=== PATIENT | male | born 1975 | race Caucasian/White ===

== ENCOUNTER 2023-04-16 11:26 | Emergency (ER) | payer OTHER ==
--- NOTE | 2023-04-16 12:30 | RAD REPORT ---
EXAM DESCRIPTION: CTStone Protocol - 04/16/2023 12:18 pm CLINICAL HISTORY: L flank pain COMPARISON: No comparisons TECHNIQUE: CT of the abdomen and pelvis was performed without contrast. All CT scans are performed using dose optimization technique as appropriate and may include automated exposure control or mA/KV adjustment according to patient size. FINDINGS: Lower chest: No acute abnormality. Liver: No acute abnormality or suspicious lesions. Biliary: No biliary ductal dilatation. Stomach: No significant focal abnormality. Duodenum: No significant focal abnormality. Pancreas: No significant abnormality. Spleen: No significant abnormality. Adrenal: No suspicious lesions. Kidney/ureter: No hydronephrosis. No renal calculi. Bilateral ureteral fullness. No ureteral calculi. Retroperitoneum: No retroperitoneal adenopathy. Vascular: No aneurysm. Minimal calcified plaque in the abdominal aorta. Bowel: No significant focal abnormality. Normal appendix. Peritoneum: No ascites or free air. Small fat containing inguinal hernias. Bladder: Grossly unremarkable. Reproductive: No adnexal masses. Bones: No acute fracture. Other: n/a IMPRESSION: No acute intra-abdominal or pelvic finding.
[2023-04-16 12:54] LABS: Specific Gravity < 1.005 (1.005-1.030); Urine Bacteria None Seen /HPF (<20); Urine Bilirubin NEGATIVE (Negative); Urine Blood Negative (Negative); Urine Clarity Clear (Clear); Urine Color Colorless (Yellow); Urine Glucose NEGATIVE (Negative); Urine Protein NEGATIVE (Negative); Urine RBC <5 /HPF (None Seen); Urine Urobilinogen Normal (Normal); Urine pH 5.5 (5.0-7.0)
[2023-04-16 12:58] LABS: Absolute Lymphocytes (CBC) 0.9 K/uL (0.7-4.9); Hematocrit 47.1 % (39.6-49.0); Lymphocytes % 14.5 % (15.3-44.8); MCV 89.3 fL (80-100); MPV 6.9 fL (7.6-11.3); RBC Red Blood Cell Count 5.28 M/uL (4.33-5.43)
--- NOTE | 2023-04-16 12:58 | RAD REPORT ---
EXAM DESCRIPTION: RAD - Chest Single View - 04/16/2023 12:45 pm CLINICAL HISTORY: MALAISE COMPARISON: Chest Single View dated 02/07/2023 FINDINGS: Lines: None. Lungs: No evidence of edema or pneumonia. Pleural: No significant pleural effusions or pneumothorax. Cardiac: The heart size is within normal limits. Mediastinum: Within normal limits. Bones: No acute fractures. Other: None IMPRESSION: No acute cardiopulmonary disease.
[2023-04-16 13:06] LABS: Protime INR 1.13
[2023-04-16 13:59] LABS: Albumin 4.1 g/dL (3.4-5.0); Bilirubin Direct 0.2 mg/dL (0-0.2); Bilirubin Indirect, Calculated 0.5 mg/dL (0.2-0.8); Bilirubin Total 0.7 mg/dL (0.2-1.0); Magnesium 2.1 mg/dL (1.6-2.4); Potassium 4.1 mEq/L (3.5-5.1); Protein, Total 7.7 g/dL (6.4-8.2); Troponin High Sensitivity 5.9 pg/mL (<58.9)
--- NOTE | 2023-04-16 14:25 | ER ---
Nurse's Notes [facility] Name: aJy Neal Age: 47 yrs Sex: Male : 1975 Arrival Date: 04/16/2023 Time: 11:26 Bed 20 Private MD: Nico Blas Diagnosis: Other malaise and fatigue;Low back pain Presentation: 04/16 11:36 Chief complaint: Patient states: L sided mid back pain for 2 weeks int. Notices feeling ll1 weak, lethargic, and nausea off/on. States he came here about 3 weeks ago for chest pain and just has never felt normal since. Coronavirus screen: Client denies travel out of the [place] in the last 14 days. At this time, the client does not indicate any symptoms associated with coronavirus-19. Ebola Screen: Patient denies travel to an Ebola-affected area in the 21 days before illness onset. Initial Sepsis Screen: Does the patient meet any 2 criteria? No. Patient's initial sepsis screen is negative. Does the patient have a suspected source of infection? No. Patient's initial sepsis screen is negative. Risk Assessment: Do you want to hurt yourself or someone else? Patient reports no desire to harm self or others. Onset of symptoms was April 03, 2023. 11:36 Method Of Arrival: Ambulatory ll1 11:36 Acuity: KANE 2 ll1 Triage Assessment: 11:38 General: Appears uncomfortable, Behavior is calm, cooperative, appropriate for age. ll1 General: Reports fatigue for. Pain: Complains of pain in L back Pain currently is 5 out of 10 on a pain scale. Quality of pain is described as aching, Is intermittent. GI: Reports nausea. Musculoskeletal: Circulation, motion, and sensation intact. Capillary refill < 3 seconds, Reports pain in L mid/upper back. Historical: - Allergies: 11:30 No Known Allergies; eh3 - Immunization history:: Adult Immunizations up to date. - Social history:: Smoking status: Patient denies any tobacco usage or history of. Screenin:30 [facility] ED Fall Risk Assessment (Adult) Score/Fall Risk Level 0 - 2 = Low Risk. Abuse eh3 screen: Denies threats or abuse. Denies injuries from another. Nutritional screening: No deficits noted. Tuberculosis screening: No symptoms or risk factors identified. Assessment: 11:30 General: Appears in no apparent distress. uncomfortable, Behavior is cooperative, eh3 appropriate for age, anxious. Pain: Complains of pain in back and chest. Neuro: Level of Consciousness is awake, alert, obeys commands, Oriented to person, place, time, situation. Cardiovascular: Capillary refill < 3 seconds Patient's skin is warm and dry. Rhythm is sinus rhythm. Respiratory: Airway is patent Respiratory effort is even, unlabored, Respiratory pattern is regular, symmetrical. GI: Abdomen is round non-distended, Reports nausea. : No signs and/or symptoms were reported regarding the genitourinary system. EENT: No signs and/or symptoms were reported regarding the EENT system. Derm: Skin is pink, warm \T\ dry. Musculoskeletal: Circulation, motion, and sensation intact. 12:30 Reassessment: Patient appears in no apparent distress at this time. Patient and/or eh3 family updated on plan of care and expected duration. Pain level reassessed. Patient is alert, oriented x 3, equal unlabored respirations, skin warm/dry/pink. 13:30 Reassessment: Patient appears in no apparent distress at this time. Patient and/or eh3 family updated on plan of care and expected duration. Pain level reassessed. Patient is alert, oriented x 3, equal unlabored respirations, skin warm/dry/pink. Vital Signs: 11:36 BP 165 / 116; Pulse 89; Resp 17; Temp 98.4; Pulse Ox 99% ; Weight 90.72 kg; Height 5 ll1 ft. 9 in. ; Pain 5/10; 12:30 BP 140 / 89; Pulse 84; Resp 16; Pulse Ox 95% on R/A; eh3 13:30 BP 144 / 85; Pulse 78; Resp 16; Pulse Ox 100% ; eh3 11:36 Body Mass Index 29.53 (90.72 kg, 175.26 cm) ll1 11:36 Pain Scale: Adult ll1 NIH Stroke Scale Scores: 11:30 NIHSS Score: 0 [facility] ED Course: 11:28 Patient arrived in ED. rg4 11:28 Nico Blas MD is Private Physician. 4 11:30 [facility] 7 11:30 Magdiel Tavares MD is Attending Physician. 7 11:30 Alyce Charlton, RN is Primary Nurse. 3 11:30 Patient has correct armband on for positive identification. Bed in low position. Call 3 light in reach. Side rails up X2. Adult w/ patient. Client placed on continuous cardiac and pulse oximetry monitoring. NIBP monitoring applied. Door closed. Noise minimized. Lights dimmed. Warm blanket given. 11:30 Inserted saline lock: 20 gauge in left antecubital area, using aseptic technique. Blood eh3 collected. 11:36 Arm band placed on Patient placed in an exam room, on a stretcher. ll1 11:38 Triage completed. ll1 12:19 CT Stone Protocol In Process Unspecified. EDMS 12:47 XRAY Chest (1 view) In Process Unspecified. EDMS 14:23 Nico Blas MD is Referral Physician. [facility] 14:28 No provider procedures requiring assistance completed. IV discontinued, intact, eh3 bleeding controlled, No redness/swelling at site. Pressure dressing applied. Administered Medications: No medications were administered Medication: 14:28 VIS not applicable for this client. 3 Outcome: 14:24 Discharge ordered by . [facility] 14:28 Discharged to home ambulatory, with significant other. eh3 14:28 Condition: stable 14:28 Discharge instructions given to patient, Instructed on discharge instructions, follow up and referral plans. Demonstrated understanding of instructions, follow-up care. 14:35 Patient left the ED. eh3 NIH Stroke Scale - NIH Stroke Score Date: 04/16/2023 Time: 11:30 Total Score = 0 10. Dysarthria (speech clarity - read or repeat words) - 0(Normal) 11. Extinction and Inattention (visual/tactile/auditory/spatial/personal) - 0(No abnormality) 1a. Level of Consciousness (LOC) - 0(Alert) 1b. Level of Consciousness (LOC) (Month \T\ Age) - 0(Both) 1c. LOC Commands (Open \T\ Closes Eyes/Mop Maker) - 0(Both) 2. Best Gaze (Lateral Gaze Paresis) - 0(Normal) 3. Visual Field Loss - 0(No visual loss) 4. Facial Palsy - 0(Normal) 5a. Left Arm: Motor (10-second hold) - 0(No drift) 5b. Right Arm: Motor (10-second hold) - 0(No drift) 6a. Left Leg: Motor (5-second hold - always test supine) - 0(No drift) 6b. Right Leg: Motor (5-second hold - always test supine) - 0(No drift) 7. Limb Ataxia (finger/nose \T\ heel/siddiqui - test with eyes open) - 0(Absent) 8. Sensory Loss (pinprick arms/legs/face) - 0(Normal) 9. Best Language: Aphasia (description/naming/reading) - 0(No aphasia) Initials: [facility] Signatures: Dispatcher [employer] Jillian Kramer 4 Abdi Milligan RN RN 1 Alyce Charlton, RN RN 3 Melani Coello FNP AUTOMATIC LATHE TENDER [facility] Corrections: (The following items were deleted from the chart) 14:26 11:55 Alyec Charlton, RN is Primary Nurse. 3 [facility]
--- NOTE | 2023-04-16 14:25 | EDPHYS ---
Physician Documentation [facility] Name: Jay Neal Age: 47 yrs Sex: Male : 1975 Arrival Date: 04/16/2023 Time: 11:26 Bed 20 Private MD: Nico Blas ED Physician Magdiel Tavares HPI: 04/16 11:30 This 47 yrs old Male presents to ER via Ambulatory with complaints of Back Pain, jh7 Shoulder Pain. 11:30 The patient presents with pain that is acute, with no known mechanism of injury. The jh7 symptoms are located in the low back, left low back and left mid back. Associated signs and symptoms: Pertinent positives: Malaise and fatigue, Pertinent negatives: abdominal pain, chest pain, dysuria, headache, numbness, tingling, vomiting. 47-year-old male presents with left back pain/flank pain for the past 2 weeks. Reports that he was seen here recently for palpitations and has not felt good since. Reports that he works out frequently but has felt more fatigued than usual. Denies fever, chest pain, or shortness of breath. Also reports that he is concerned that he could have a kidney stone due to the flank pain. Denies urinary symptoms.. Historical: - Allergies: 11:30 No Known Allergies; eh3 - Immunization history:: Adult Immunizations up to date. - Social history:: Smoking status: Patient denies any tobacco usage or history of. ROS: 11:30 Constitutional: Negative for fever, chills, and weight loss, Eyes: Negative for injury, jh7 pain, redness, and discharge, Neck: Negative for injury, pain, and swelling, Cardiovascular: Negative for chest pain, palpitations, and edema, Respiratory: Negative for shortness of breath, cough, wheezing, and pleuritic chest pain, Abdomen/GI: Negative for abdominal pain, nausea, vomiting, diarrhea, and constipation, MS/Extremity: Negative for injury and deformity, Skin: Negative for injury, rash, and discoloration, Neuro: Negative for headache, weakness, numbness, tingling, and seizure. 11:30 Back: Positive for flank pain, on the left. 11:30 : Positive for flank pain, Negative for urinary symptoms, penile pain, testicular pain 11:30 All other systems are negative. Exam: 11:30 Constitutional: This is a well developed, well nourished patient who is awake, alert, jh7 and in no acute distress. Head/Face: Normocephalic, atraumatic. Eyes: Pupils equal round and reactive to light, extra-ocular motions intact. Lids and lashes normal. Conjunctiva and sclera are non-icteric and not injected. Cornea within normal limits. Periorbital areas with no swelling, redness, or edema. Neck: Trachea midline, no thyromegaly or masses palpated, and no cervical lymphadenopathy. Supple, full range of motion without nuchal rigidity, or vertebral point tenderness. No Meningismus. Cardiovascular: Regular rate and rhythm with a normal S1 and S2. No gallops, murmurs, or rubs. Normal PMI, no JVD. No pulse deficits. Respiratory: Lungs have equal breath sounds bilaterally, clear to auscultation and percussion. No rales, rhonchi or wheezes noted. No increased work of breathing, no retractions or nasal flaring. Abdomen/GI: Soft, non-tender, with normal bowel sounds. No distension or tympany. No guarding or rebound. No evidence of tenderness throughout. Skin: Warm, dry with normal turgor. Normal color with no rashes, no lesions, and no evidence of cellulitis. MS/ Extremity: Pulses equal, no cyanosis. Neurovascular intact. Full, normal range of motion. Neuro: Awake and alert, GCS 15, oriented to person, place, time, and situation. Motor strength 5/5 in all extremities. Sensory grossly intact. Normal gait. 11:30 : CVA tenderness, on the left. 11:30 Neuro: Orientation: is normal, Mentation: is normal, Memory: is normal, Cranial nerves: jh7 grossly normal, Cerebellar function: is grossly normal, Motor: is normal, Sensation: is normal. Vital Signs: 11:36 BP 165 / 116; Pulse 89; Resp 17; Temp 98.4; Pulse Ox 99% ; Weight 90.72 kg; Height 5 ll1 ft. 9 in. ; Pain 5/10; 12:30 BP 140 / 89; Pulse 84; Resp 16; Pulse Ox 95% on R/A; eh3 13:30 BP 144 / 85; Pulse 78; Resp 16; Pulse Ox 100% ; eh3 11:36 Body Mass Index 29.53 (90.72 kg, 175.26 cm) ll1 11:36 Pain Scale: Adult ll1 NIH Stroke Scale Scores: 11:30 NIHSS Score: 0 [facility] MDM: 11:30 Patient medically screened. [facility] 14:15 Differential diagnosis: Fatigue sprain, Ureterolithiasis Rhabdomyolysis. Data reviewed: [facility] vital signs, nurses notes, lab test result(s), EKG, radiologic studies, CT scan, plain films. Historians other than the Patient: Spouse/Significant Other: . Counseling: I had a detailed discussion with the patient and/or guardian regarding: the historical points, exam findings, and any diagnostic results supporting the discharge/admit diagnosis, the need for outpatient follow up, for definitive care, to return to the emergency department if symptoms worsen or persist or if there are any questions or concerns that arise at home. ED course: The patient reported history of anxiety and whitecoat syndrome. Reports that since he was seen in the ER last time he has been very anxious and was concerned about his kidney values since his GFR was 58 at his last PCP visit. Informed him that his GFR had increased to 65 and that his creatinine was borderline high. Reviewed all labs and imaging with the patient. Advised him to follow-up with his PCP for further lab work (thyroid panel, iron panel, etc). If he develops any new concerning symptoms, he may return to the ER for further eval.. 04/16 11:43 Order name: Basic Metabolic Panel; Complete Time: 14:04 [facility] 04/16 11:43 Order name: CBC with Diff; Complete Time: 13: [facility] 04/16 11:43 Order name: LFT's; Complete Time: 14:04 [facility] 04/16 11:43 Order name: Magnesium; Complete Time: 14:04 [facility] 04/16 11:43 Order name: NT PRO-BNP; Complete Time: 14:04 [facility] 04/16 11:43 Order name: PT-INR; Complete Time: 14:04 [facility] 04/16 11:43 Order name: Troponin HS; Complete Time: 14:04 [facility] 04/16 11:43 Order name: CK; Complete Time: 14:04 [facility] 04/16 11:43 Order name: Urinalysis W/Microscopic; Complete Time: 13:04 [facility] 04/16 11:43 Order name: XRAY Chest (1 view); Complete Time: 13:04 [facility] 04/16 11:43 Order name: CT Stone Protocol; Complete Time: 12:42 [facility] 04/16 11:43 Order name: EKG; Complete Time: 11:44 [facility] 04/16 11:43 Order name: Cardiac monitoring; Complete Time: 12:56 [facility] 04/16 11:43 Order name: EKG - Nurse/Tech; Complete Time: 12:56 [facility] 04/16 11:43 Order name: IV Saline Lock; Complete Time: 12:56 [facility] 04/16 11:43 Order name: Labs collected and sent; Complete Time: 12:56 [facility] 04/16 11:43 Order name: O2 Per Protocol; Complete Time: 12:56 [facility] 04/16 11:43 Order name: O2 Sat Monitoring; Complete Time: 12:56 [facility] 04/16 14:05 Order name: Recheck B/P; Complete Time: 14:10 [facility] EC:46 Rate is 82 beats/min. Rhythm is regular. QRS [place] is Normal. OK interval is normal at [facility] 154 msec. QRS interval is normal at 82 msec. QT interval is normal at 360 msec. No Q waves. T waves are Peaked in leads V2, V3. No ST changes noted. Clinical impression: NSR w/ Non-specific ST/T Changes. Administered Medications: No medications were administered Disposition Summary: 04/16/23 14:24 Discharge Ordered Location: Home [facility] Problem: new [facility] Symptoms: are unchanged [facility] Condition: Stable [facility] Diagnosis - Other malaise and fatigue [facility] - Low back pain [facility] Followup: [facility] - With: Nico Blas MD - When: 2 - 3 days - Reason: Recheck today's complaints Discharge Instructions: - Discharge Summary Sheet [facility] - Acute Back Pain, Adult [facility] - Musculoskeletal Pain [facility] - Fatigue [facility] Forms: - Medication Reconciliation Form [facility] - Thank You Letter [facility] NIH Stroke Scale - NIH Stroke Score Date: 04/16/2023 Time: 11:30 Total Score = 0 10. Dysarthria (speech clarity - read or repeat words) - 0(Normal) 11. Extinction and Inattention (visual/tactile/auditory/spatial/personal) - 0(No abnormality) 1a. Level of Consciousness (LOC) - 0(Alert) 1b. Level of Consciousness (LOC) (Month \T\ Age) - 0(Both) 1c. LOC Commands (Open \T\ Closes Eyes/Cartography Technician) - 0(Both) 2. Best Gaze (Lateral Gaze Paresis) - 0(Normal) 3. Visual Field Loss - 0(No visual loss) 4. Facial Palsy - 0(Normal) 5a. Left Arm: Motor (10-second hold) - 0(No drift) 5b. Right Arm: Motor (10-second hold) - 0(No drift) 6a. Left Leg: Motor (5-second hold - always test supine) - 0(No drift) 6b. Right Leg: Motor (5-second hold - always test supine) - 0(No drift) 7. Limb Ataxia (finger/nose \T\ heel/siddiqui - test with eyes open) - 0(Absent) 8. Sensory Loss (pinprick arms/legs/face) - 0(Normal) 9. Best Language: Aphasia (description/naming/reading) - 0(No aphasia) Initials: [facility] Signatures: Dispatcher [employer] Abdi Olivera RN RN ll1 Alyce Charlton RN RN eh3 Melani Coello, THREE KNIFE TRIMMER THREE KNIFE TRIMMER [facility]
[2023-04-16 14:49] VITALS: TEMP 98.4
[2023-04-16 14:52] VITALS: BP 144/85; O2SAT 100
--- NOTE | 2023-04-17 14:19 | EKG ---
Test Date: 2023-04-16 Test Time: 12:46:15 Television Audio Engineer: FERN MEASUREMENT RESULTS: Intervals: Rate: 82 MS: 154 QRSD: 82 QT: 360 QTc: 420 [place]: P: 67 MS: 154 QRS: 33 T: 75 INTERPRETIVE STATEMENTS: Normal sinus rhythm Normal ECG Compared to ECG 02/07/2023 23:28:05 Myocardial infarct finding no longer present Electronically Signed On 04-17-23 14:17:08 CDT by Gary Steiner
== END 2023-04-16 14:35 | disposition home or self-care (01) ==
LOC: ER 11:26
DX: M54.50 Low back pain, unspecified (principal); R53.81 Other malaise; R53.83 Other fatigue
CPT/HCPCS: 36415; 71045; 74176; 76377; 80048; 80076; 81001; 82550; 83735; 83880; 84484; 85025; 85610; 93005; 99284

== ENCOUNTER → 2024-02-29 | Day surgery (SDC) | payer BC ==
--- NOTE | 2024-02-28 12:19 | RAD REPORT ---
EXAM DESCRIPTION: RAD - Chest Pa And Lat (2 Views) - 02/28/2024 12:11 pm CLINICAL HISTORY: pre-op Chest pain. COMPARISON: Chest Single View dated 04/16/2023; Chest Single View dated 02/07/2023 FINDINGS: The lungs are clear. The heart is normal in size. No displaced fractures. IMPRESSION: No acute or concerning finding suspected.
[~2024-02-29] MED LIST: CEFAZOLIN SODIUM 1 GM/VIAL ONE
[2024-02-29] MEDS: Ringers Lactate 1,000 ML IV ONE (08:53)
[2024-02-29 10:16] VITALS: BP 141/74; TEMP 98.5; O2SAT 98
--- NOTE | 2024-03-08 17:28 | EKG ---
Test Date: 2024-02-28 Test Time: 11:58:51 City Bus Driver: SARIKA MEASUREMENT RESULTS: Intervals: Rate: 71 NH: 146 QRSD: 82 QT: 372 QTc: 404 [place]: P: 63 NH: 146 QRS: 24 T: 38 INTERPRETIVE STATEMENTS: Normal sinus rhythm Cannot rule out Anterior infarct, age undetermined Abnormal ECG Compared to ECG 04/16/2023 12:46:15 Myocardial infarct finding now present Electronically Signed On 03-08-24 16:54:57 CDT by Gary Steiner
== END ==
LOC: OR 08:17
PROVIDERS: ATTEND Surgery
DX: K40.20 Bilateral inguinal hernia, without obstruction or gangrene, not specified as recurrent (principal); Z53.09 Procedure and treatment not carried out because of other contraindication
CPT/HCPCS: 71046; 93005; J0690; J7120

== ENCOUNTER 2024-03-07 06:20 | Day surgery (SDC) | payer BC ==
[2024-03-07] MEDS: Ringers Lactate 1,000 ML IV ONE (06:40)
[2024-03-07] MEDS ORDERED: LIDOCAINE 2% MPF 5 ML VIAL ONE (07:07)
[2024-03-07] MEDS ORDERED: GLYCOPYRROLATE 0.2 MG/ML SYR ONE (07:07)
[2024-03-07] MEDS ORDERED: ROCURONIUM 50 MG/5 ML VIAL IV ONE (07:07)
[2024-03-07] MEDS ORDERED: NEOSTIGMINE 1 MG/ML -10 ML VIAL ONE (07:07)
[2024-03-07] MEDS ORDERED: ONDANSETRON 4 MG/2 ML VIAL ONE (07:07)
[2024-03-07] MEDS ORDERED: FENTANYL CITR 100 MCG/2 ML ONE ×2 (07:08→08:24)
[2024-03-07] MEDS ORDERED: propofoL 200 MG/20 ML VIAL IV ONE (07:08)
[2024-03-07] MEDS ORDERED: MIDAZOLAM HCL 2 MG/2 ML INJ ONE (07:09)
[2024-03-07] MEDS: CEFAZOLIN SODIUM 1 GM/VIAL ONE (07:35)
[2024-03-07] MEDS ORDERED: EPHEDRINE SULF 50 MG/ML VIAL ONE (07:55)
[2024-03-07] MEDS ORDERED: Mastisol Adhesive Liq ONE (08:31)
--- NOTE | 2024-03-07 08:48 | P.BOP ---
Preoperative diagnosis: tender bilateral inguinal hernias Postoperative diagnosis: same Primary procedure: Laparoscopic repair of bilateral inguinal hernias with mesh Estimated blood loss: <10cc Specimen: none Findings: as above Anesthesia: General Complications: None Implants: 3d mesh medium right and left Transferred to: Recovery Room Condition: Good
[2024-03-07] MEDS: MEPERIDINE HCL 25 MG/ML SYR ONE (09:10)
[2024-03-07] MEDS: HYDROMORPHONE HCL 1 MG/ML INJ ONE (09:12)
[2024-03-07 09:18] VITALS: TEMP 97
[2024-03-07] MEDS: TAMSULOSIN 0.4 MG SR CAP ONE (09:34)
[2024-03-07] MEDS: CODEINE 30MG/APAP 300MG TAB ONE (09:34)
[2024-03-07 12:23] VITALS: BP 150/84; O2SAT 98
--- NOTE | 2024-03-07 22:44 | OP ---
Date of Procedure: 03/07/2024 Surgeon: August Gomez MD Preoperative Diagnosis: Tender bilateral inguinal hernias. Postoperative Diagnosis: Tender bilateral inguinal hernias. Procedure: Laparoscopic repair of tender bilateral inguinal hernias with mesh. Estimated Blood Loss: Less than 10 cc. Anesthesia: General plus local. Implant: 3D mesh, median, right and left. Complications: None. Indications: This is the case of a 48-year-old patient who comes to us with bilateral tender inguina l hernias. The benefits, alternatives, and risks of laparoscopic versus open repair were fully expla ined, which include, but not limited to infection, bleeding, damage to adjacent structures, anesthesi a complication, chronic pain, chronic numbness, recurrence, VA, and even . He also understands this may not relieve the symptoms. He might need more than one surgical intervention. We also expla ined to him that we may have to use mesh in that region, so the pros and cons of mesh placement were discussed with the patient and all the questions were answered to the satisfaction. He signed the co nsent. Description Of Procedure: The patient was brought to the operating room, placed in supine position. Anesthesia was done without complication. Abdominal area and inguinal region were prepped and drape d in a sterile fashion. Local anesthesia was applied followed by sharp incision of the skin in the i nfraumbilical region. Incision was carried down until we found the anterior rectus sheath was opened and then muscle retracted laterally to expose the posterior rectus sheath. The extraperitoneal spac e was gently developed with blunt dissection and then a balloon tipped trocar was placed in that area directed to the pubic symphysis and inflated under direct visualization with the camera in. Once we did that, the balloon was deflated. It was removed intact and then we insufflated the area. Camera once again still in, we proceeded to do a 5 mm trocar just above the pubic symphysis and another one [facility] between the first and second one. The preperitoneal space was further developed by exposing the inferior epigastric vessels and keeping them anterior. The Ferny ligament was dissected latera lly to the junction of the iliac veins. The dissection continued inferiorly to the iliopubic tract a voiding damage to the femoral branch of the genitofemoral nerve and lateral femoral cutaneous nerve. The cord structures were carefully skeletonized. The hernia sac was identified reduced by gentle tr action into the peritoneum. At that moment, then we went to the opposite side and in that case, we d id the right side first on the left side and then we did the same technique. We had the preperitonea l space already developed inferior epigastric vessels and keep them anterior. Ferny ligament dissec shyann laterally to the junction with the iliac veins. The dissection continued inferiorly to the iliop ubic tract once again avoiding damage to the femoral branch of the genitofemoral nerve and lateral fe moral cutaneous nerve. The cord structures were carefully skeletonized once again. Hernia sac was i dentified and reduced by gentle traction. At that moment, we proceeded to select a medium mesh 3D th at will cover direct and indirect spaces. We rolled that in a complex cylinder and passed it through the periumbilical trocar. Once we had in that area, we opened it to cover direct, indirect spaces. I then tackled in place with the left lateral and superior to the iliopubic tract and inferior media l to the Ferny ligament with the help of a SorbaFix. Then, we proceeded to do the right side. Once again, a medium size 3D mesh secured in place once again with SorbaFix using the same technique. Af ter ensuring adequate hemostasis, the insufflation was then discontinued. I allowed to escape while holding the mesh in place. Trocars were removed under direct visualization. The anterior rectus she ath fascia was closed with #1 Vicryl and the skin with a combination of 3-0 chromic and Steri-Strips. Sponge count and instrument counts were correct. At the end of the case, testicles were in the scr otum. PREET/BISHNU Voice ID: [id number] Report ID: [id number]
--- NOTE | 2024-03-08 07:56 | DS ---
Date of Discharge: 03/07/2024 Diagnosis: Tender bilateral inguinal hernias. Procedure: Laparoscopic repair of tender bilateral inguinal hernias with mesh. Disposition: Home. Activity: As tolerated. No heavy lifting. Plan: Follow up in my office in 1 week. Call for appointment at [phone]. Keep area dry for 48 hour s, then may shower. Cold compress to bilateral inguinal region. PREET/BISHNU Voice ID: [id number] Report ID: [id number]
== END 2024-03-07 10:18 | disposition home or self-care (01) ==
LOC: OR 06:20
PROVIDERS: ATTEND Surgery
PROC: 0YUA4JZ Supplement Bilateral Inguinal Region with Synthetic Substitute, Percutaneous Endoscopic Approach (ICD-10-PCS; principal; 2024-03-07 07:30)
DX: K40.00 Bilateral inguinal hernia, with obstruction, without gangrene, not specified as recurrent (principal)
CPT/HCPCS: 93005; 71046; 49650; J2704; J2710; J2001; J2250; J3010 ×2; J2175; J1170; J2405; J7120 ×2; J0690

== ENCOUNTER 2024-12-17 08:51 | Emergency (ER) | payer BC ==
[2024-12-17 10:57] LABS: Absolute Eosinophils 0.1 K/uL (0-0.5); Absolute Lymphocytes (CBC) 1.2 K/uL (0.7-4.9); Absolute Monocytes 0.4 K/uL (0.1-1.3); Basophils % 0.2 % (0-1.3); Eosinophils % 1.2 % (0-4.4); Hematocrit 46.1 % (39.6-49.0); Lymphocytes % 21.3 % (15.3-44.8); MCH 30.7 pg (27.0-35.0); MCHC 34.8 g/dL (32.0-36.0); MCV 88.4 fL (80-100); MPV 6.8 fL (7.6-11.3); Monocytes % 7.3 % (3.3-12.3); Platelets 216 thou/uL (152-406); RBC Red Blood Cell Count 5.22 M/uL (4.33-5.43); Red Cell Distribution Width 13.2 % (12.1-15.2)
[2024-12-17] MEDS ORDERED: FAMOTIDINE 20 MG/2 ML VIAL IV ONE (11:05)
[2024-12-17 11:12] LABS: Anion Gap 7.1 mEq/L (5.0-15.0); Potassium 4.1 mEq/L (3.5-5.1); Troponin High Sensitivity 3.3 pg/mL (<58.9)
--- NOTE | 2024-12-17 11:17 | RAD REPORT ---
Procedure: Chest Single View HISTORY: Chest pain COMPARISON: 2023 FINDINGS: The lungs appear clear of acute infiltrate. No significant pleural effusion noted. The heart is normal size. IMPRESSION: No acute abnormality is displayed.
--- NOTE | 2024-12-17 11:19 | ER ---
Nurse's Notes [facility] Name: Jay Neal Age: 49 yrs Sex: Male : 1975 Arrival Date: 12/17/2024 Time: 08:51 Bed 11 Private MD: Diagnosis: Chest pain, unspecified Presentation: 12/17 09:03 Chief complaint: Patient states: Upper abdominal pain and CP since . Dizziness, ll1 palpitations, and cant take a deep breathe. Noticed tingling to L arm and mouth off/on for a few days. Coronavirus screen: Client denies travel out of the [place] in the last 14 days. At this time, the client does not indicate any symptoms associated with coronavirus-19. Ebola Screen: Patient denies travel to an Ebola-affected area in the 21 days before illness onset. Initial Sepsis Screen: Does the patient meet any 2 criteria? No. Patient's initial sepsis screen is negative. Does the patient have a suspected source of infection? No. Patient's initial sepsis screen is negative. Risk Assessment: Do you want to hurt yourself or someone else? Patient reports no desire to harm self or others. Onset of symptoms was December 13, 2024. 09:03 Method Of Arrival: Ambulatory ll1 09:03 Acuity: KANE 3 ll1 Triage Assessment: 09:08 General: Appears uncomfortable, Behavior is calm, cooperative, appropriate for age. ll1 General: Reports chills for. Neuro: Reports dizziness. Cardiovascular: Reports chest pain, fatigue, palpitations. Historical: - Allergies: 09: No Known Allergies; ll1 - Home Meds: 09: vitamins and supplements [Active]; ll1 - PMHx: 09: None; ll1 - PSHx: 09:01 B hernia repairs; ll1 - Immunization history:: Adult Immunizations up to date. - Infectious Disease History:: Denies. - Social history:: Smoking status: Patient denies any tobacco usage or history of. Screenin:11 [facility] ED Fall Risk Assessment (Adult) History of falling in the last 3 months, hb including since admission No falls in past 3 months (0 pts) Confusion or Disorientation No (0 pts) Intoxicated or Sedated No (0 pts) Impaired Gait No (0 pts) Mobility Assist Device Used No (0 pt) Altered Elimination No (0 pt) Score/Fall Risk Level 0 - 2 = Low Risk Oriented to surroundings, Maintained a safe environment, Educated pt \T\ family on fall prevention, incl call for assistance when getting out of bed. Abuse screen: Denies threats or abuse. Denies injuries from another. Nutritional screening: No deficits noted. Tuberculosis screening: No symptoms or risk factors identified. Assessment: 10:37 Reassessment: Patient and/or family updated on plan of care and expected duration. Pain ll1 level reassessed. 11:11 General: Appears in no apparent distress. Behavior is calm, cooperative. Pain: Pain hb radiates to left arm Pain currently is 3 out of 10 on a pain scale. Pain began this morning. Neuro: Level of Consciousness is awake, alert, obeys commands, Oriented to person, place, time, situation. Cardiovascular: Reports chest pain, lightheadedness, shortness of breath, Patient's skin is warm and dry. Rhythm is regular. Respiratory: Reports shortness of breath at rest Respiratory effort is even, unlabored, Respiratory pattern is regular, symmetrical. GI: No signs and/or symptoms were reported involving the gastrointestinal system. : No signs and/or symptoms were reported regarding the genitourinary system. EENT: No signs and/or symptoms were reported regarding the EENT system. Derm: Skin is pink, warm \T\ dry. Musculoskeletal: No signs and/or symptoms reported regarding the musculoskeletal system. Vital Signs: 09:03 BP 156 / 98; Pulse 85; Resp 17; Temp 97.4; Pulse Ox 100% on R/A; Weight 86.18 kg; ll1 Height 5 ft. 9 in. ; Pain 5/10; 11:11 BP 135 / 84; Pulse 69; Resp 16; Pulse Ox 99% on R/A; Pain 3/10; hb 11:39 BP 148 / 86; Pulse 74; Resp 17; Pulse Ox 100% on R/A; hb 09:03 Body Mass Index 28.06 (86.18 kg, 175.26 cm) ll1 09:03 Pain Scale: Adult ll1 11:11 Pain Scale: Adult hb ED Course: 08:54 Patient arrived in ED. im 09:03 Ermias Christian MD is Attending Physician. ec2 09:08 Triage completed. ll1 09:08 Arm band placed on. ll1 10:28 XRAY Chest (1 view) In Process Unspecified. EDMS 10:37 Initial lab(s) drawn, by me, sent to lab. Inserted saline lock: 22 gauge in left ll1 antecubital area, using aseptic technique. Blood collected. Flushed with 10 mL NS. 11:02 Nell Saunders, RN is Primary Nurse. hb 11:11 Patient has correct armband on for positive identification. Bed in low position. Call light in reach. Provided Education on: tests, result ties, medications. Client placed on continuous cardiac and pulse oximetry monitoring. NIBP monitoring applied. mate chief on. Pulse ox on. NIBP on. 11:13 Patient maintains SpO2 saturation greater than 95% on room air. hb 11:39 No provider procedures requiring assistance completed. IV discontinued, intact, hb bleeding controlled, No redness/swelling at site. Pressure dressing applied. Administered Medications: 11:10 Drug: Famotidine IVP 20 mg IVP once; dilute with 10 mL 0.9% NaCl; give over 2 minutes hb Route: IVP; Site: left antecubital; 11:39 Follow up: Response: No adverse reaction hb 11:38 Drug: Methocarbamol PO 500 mg PO once Route: PO; hb 11:39 Follow up: Response: Medication administered at discharge. hb Medication: 11:11 VIS not applicable for this client. hb Outcome: 11:19 Discharge ordered by . ec2 11:39 Discharged to home ambulatory, hb 11:39 Condition: stable 11:39 Discharge instructions given to patient, Instructed on discharge instructions, follow up and referral plans. medication usage, Demonstrated understanding of instructions, follow-up care, medications, Prescriptions given X 1, 11:40 Patient left the ED. hb Signatures: Dispatcher [employer] EDMI Nell Saunders RN RN hb Abdi Milligan RN RN ll1 Angella Aguillon Edwin, MD MD ec2 Corrections: (The following items were deleted from the chart) 09:09 09:03 Chief complaint: Patient states: Upper abdominal pain and CP since . ll1 Dizziness, palpitations, and cant take a deep breathe. Noticed tingling to L arm and mouth after walking his dog this morning. ll1
--- NOTE | 2024-12-17 11:20 | EDPHYS ---
Physician Documentation [facility] Name: Jay Neal Age: 49 yrs Sex: Male : 1975 Arrival Date: 12/17/2024 Time: 08:51 Bed 11 Private MD: ED Physician Ermias Christian HPI: 12/17 09:19 This 49 yrs old Male presents to ER via Ambulatory with complaints of chest ec2 pain. 09:20 Patient arrives today for evaluation of chest pain. Patient reports that has been ec2 having intermittent chest pain ongoing for 2 years. Reports that he had had worsening chest pain over the past couple days for prompt evaluation. Patient reports that he is also having some numbness in the bilateral upper and lower extremities. Reports no significant medical problems, does regularly see a gallery host for palpitations however has had negative ultrasonography as well as negative stress testing.. Historical: - Allergies: 09:01 No Known Allergies; ll1 - Home Meds: 09:01 vitamins and supplements [Active]; ll1 - PMHx: 09:01 None; ll1 - PSHx: 09:01 B hernia repairs; ll1 - Immunization history:: Adult Immunizations up to date. - Infectious Disease History:: Denies. - Social history:: Smoking status: Patient denies any tobacco usage or history of. ROS: 09:20 Constitutional: as per hpi ec2 Exam: 09:20 Constitutional: GEN: NAD Head: atraumatic Eyes: EOMI Ears: External ears are ec2 normal. CV: regular rate LUNGS: no respiratory distress ABD: non-distended SKIN: no evidence of rashes MSK: no evidence of trauma Vital Signs: 09:03 BP 156 / 98; Pulse 85; Resp 17; Temp 97.4; Pulse Ox 100% on R/A; Weight 86.18 kg; ll1 Height 5 ft. 9 in. ; Pain 5/10; 11:11 BP 135 / 84; Pulse 69; Resp 16; Pulse Ox 99% on R/A; Pain 3/10; hb 11:39 BP 148 / 86; Pulse 74; Resp 17; Pulse Ox 100% on R/A; hb 09:03 Body Mass Index 28.06 (86.18 kg, 175.26 cm) ll1 09:03 Pain Scale: Adult ll1 11:11 Pain Scale: Adult hb MDM: 09:03 Medical Screening Exam initiated ec2 09:21 Data reviewed: vital signs, nurses notes. ED course: Patient arrives today for ec2 evaluation of chest pain. Examination is unrevealing. Will obtain a cardiac workup. EKG obtained, independently reviewed and interpreted by me, shows normal sinus rhythm, rate of 94, no acute ST segment elevations, and was nonactionable. Differential diagnosis considered include processes which is ACS, PE, dissection.. 11:17 ED course: CBC is reassuring. Troponin within normal ranges, D-dimer is undetectable, ec2 metabolic profile shows kidney disease. Ultimately patient been having several days of symptoms, will forego repeat troponin.. 12/17 09:18 Order name: Basic Metabolic Panel; Complete Time: 11:16 ec2 12/17 09:18 Order name: CBC with Diff; Complete Time: 11:06 ec2 12/17 09:18 Order name: D-Dimer; Complete Time: 11:16 ec2 12/17 09:18 Order name: Troponin HS; Complete Time: 11:16 ec2 12/17 09:18 Order name: XRAY Chest (1 view); Complete Time: 11:18 ec2 12/17 09:18 Order name: EKG; Complete Time: 09:18 ec2 12/17 09:18 Order name: Cardiac monitoring; Complete Time: 11:10 ec2 12/17 09:18 Order name: EKG - Nurse/Tech; Complete Time: 10:25 ec2 12/17 09:18 Order name: IV Saline Lock; Complete Time: 10:37 ec2 12/17 09:18 Order name: Labs collected and sent; Complete Time: 10:37 ec2 12/17 09:18 Order name: O2 Per Protocol; Complete Time: 11:10 ec2 12/17 09:18 Order name: O2 Sat Monitoring; Complete Time: 11:10 ec2 Administered Medications: 11:10 Drug: Famotidine IVP 20 mg IVP once; dilute with 10 mL 0.9% NaCl; give over 2 minutes hb Route: IVP; Site: left antecubital; 11:39 Follow up: Response: No adverse reaction hb 11:38 Drug: Methocarbamol PO 500 mg PO once Route: PO; hb 11:39 Follow up: Response: Medication administered at discharge. hb Disposition Summary: 12/17/24 11:19 Discharge Ordered Notes: Location: Home ec2 Condition: Stable ec2 Diagnosis - Chest pain, unspecified ec2 Followup: ec2 - With: Private Physician - When: - Reason: Re-evaluation by your physician Discharge Instructions: - Discharge Summary Sheet ec2 - Nonspecific Chest Pain, Adult, [id number] ec2 Forms: - Work release form ll1 - Medication Reconciliation Form ec2 - Antibiotic Education ec2 - Prescription Opioid Use ec2 - Patient Portal Instructions ec2 - Leadership Thank You Letter ec2 Prescriptions: - methocarbamol 500 mg Oral tablet - take 1 tablet ORAL route 4 times per day; 20 tablet; Refills: 0, Product ec2 Selection Permitted Signatures: Dispatcher [employer] Nell Hinton RN RN hb Lewis, Lynsay, RN RN 1 Ermias Christian MD MD ec2
[2024-12-17] MEDS ORDERED: methocarbamoL 500 MG TAB ONE (11:33)
[2024-12-17 11:58] VITALS: TEMP 97.4
[2024-12-17 12:05] VITALS: BP 148/86; O2SAT 100
--- NOTE | 2024-12-18 12:15 | EKG ---
Test Date: 2024-12-17 Test Time: 09:02:46 Vending Machine Operator: GENESIS MEASUREMENT RESULTS: Intervals: Rate: 94 [place]: 148 QRSD: 80 QT: 344 QTc: 430 [place]: P: 50 [place]: 148 QRS: 20 T: 48 INTERPRETIVE STATEMENTS: Normal sinus rhythm Cannot rule out Anterior infarct, age undetermined Abnormal ECG Compared to ECG 02/28/2024 11:58:51 No significant changes Electronically Signed On 12-18-24 12:12:40 MEDICAL ASST by Cheikh Bowens
== END 2024-12-17 11:40 | disposition home or self-care (01) ==
LOC: ER 08:51
DX: R07.9 Chest pain, unspecified (principal); R20.0 Anesthesia of skin
CPT/HCPCS: 36415; 71045; 80048; 84484; 85025; 85379; 93005; 96374; 99285